=== PATIENT | female | born 1955 | race Hispanic/Latino ===

== ENCOUNTER → 2018-01-21 | Outpatient (CLI) | payer OTHER ==
[~2018-01-21] MED LIST: LIPITOR20 MG PO
--- NOTE | 2018-01-21 14:34 | Diagnostic Imaging Report ---
EXAM: SP LUMBAR, COMPLETE MIN 4VW DATE: 01/21/2018 12:57 PM INDICATION: ^[id number] ^1320 ^Spondylolysis, lumbosacral region pain/fall COMPARISON: None FINDINGS: Vertebral heights and disc spaces are maintained. Moderate lower lumbar facet degenerative changes are present with trace degenerative anterolisthesis L4 and L5. No distinct pars defect identified. IMPRESSION: Degenerative changes as above. Signed by: Dr. Iglesia Varghese MD on 01/21/2018 2:30 PM
--- NOTE | 2018-01-21 14:35 | Diagnostic Imaging Report ---
EXAM: SACRUM X-RAY DATE: 01/21/2018 12:57 PM INDICATION: ^[id number] ^1320 ^Spondylolysis, lumbosacral region pain/fall COMPARISON: None FINDINGS: Lower lumbar degenerative changes. Mild degenerative changes SI joints. No sacral fracture, coccygeal fracture, or osseous lesion identified. IMPRESSION: No acute findings. Signed by: Dr. Iglesia Varghese MD on 01/21/2018 2:31 PM
== END ==
LOC: RAD 12:44
PROVIDERS: ATTEND Internal Medicine
DX: M43.07 Spondylolysis, lumbosacral region (principal)
CPT/HCPCS: 72110; 72220

== ENCOUNTER 2018-07-27 12:24 | Emergency (ER) | payer OTHER ==
[~2018-07-27] VITALS: Ht 162.6 cm; Wt 83.5 kg
--- OUTSIDE RECORDS SUMMARY | 2018-07-27 12:26 | XMS REPORT ---
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 Allergies, Adverse Reactions, Alerts This patient has no known allergies or adverse reactions. Medications This patient has no known medications. Results Test Description Test Time Test Comments Text Results Atomic Results Result Comments SACRUM X-RAY 2018-01-21 14:31:00 [place] [address] Patient Name: SHRUTHI FERREIRA MR #: [id number] : 1955 Age/Sex: 62/F Req #: [id number] [facility] Physician: Ordered by: BRYANT HOFFMAN MD Report #: [id number] Location: [facility] Room/Bed: Procedure: [id number] DX/SACRUM X-RAY Exam Date: 01/21/18 Exam Time: 1320 REPORT STATUS: Signed EXAM: SACRUM X-RAY DATE: 01/21/2018 12:57 PM INDICA TION: [id number] 1320 Spondylolysis, lumbosacral region pain/fall COMPARISON: None FINDINGS: Lower lumbar degenerative changes. Mild degenerative changes SI joints. No sacral fracture, coccygeal fracture, or osseous lesion identified. IMPRESSION: No acute findings. Signed by: Dr. Iglesia Dennis MD on 01/21/2018 2:31 PM Dictated By: IGLESIA DENNIS MD 30 Transcribed By: PETRA on 01/21/181430 COPY TO: BRYANT HOFFMAN MD SP LUMBAR, COMPLETE MIN 4VW 2018-01-21 14:29:00 [place] [address] Patient Name: SHRUTHI FERREIRA MR #: [id number] : 1955 Age/Sex: 62/F Req #: [id number] Adm Physician: Ordered by: BRYANT HOFFMAN MD Report #: [id number] Location: [facility] Room/Bed: Procedure: [id number] DX/SP LUMBAR, COMPLETE MIN 4VW Exam Date: 01/21/18 Exam Time: 1320 REPORT STATUS: Signed EXAM: SP LUMBAR, COMPLETE MIN 4VW DATE: 12:57 PM INDICATION: [id number] 1320 Spondylolysis, lumbosacral region pain/fall COMPARISON: None FINDINGS: Vertebral heights and disc spaces are maintained. Moderate lower lumbar facet degenerative changes are present with trace degenerative anterolisthesis L4 and L5. No distinct pars defect identified. IMPRESSION: Degenerative changes as above. Signed by: Dr. Iglesia Dennis MD on 01/21/2018 2:30 PM Dictated By: IGLESIA DENNIS MD 29 Transcribed By: PETRA on 01/21/181429 COPY TO: BRYANT HOFFMAN MD
[2018-07-27] MEDS ORDERED: HYDROCODONE/APAP 7.5MG-325MG 1 EA TAB PO PRN (13:30)
[2018-07-27] MEDS ORDERED: KETOROLAC TROMETHAMINE 60 MG/2 ML VIAL IM NR (13:30)
[2018-07-27] MEDS ORDERED: DEXAMETHASONE SOD PHOS 10 MG/1 ML VIAL IM NR (13:30)
== END 2018-07-27 15:20 | disposition home or self-care (01) ==
LOC: ER 12:24
DX: M54.42 Lumbago with sciatica, left side (principal)
CPT/HCPCS: 99284; J1100; J1885

== ENCOUNTER → 2019-06-18 | Outpatient (CLI) | payer OTHER ==
--- NOTE | 2019-06-18 14:39 | Diagnostic Imaging Report ---
LUMBAR SPINE 4 VIEWS HISTORY: Low back pain lumbar spondylosis, fall COMPARISON: Lumbar spine radiographs of 01/21/2018 FINDINGS: AP, lateral, and bilateral oblique views of the lumbar spine were obtained. No lumbar spine fracture is visualized. There is mild/moderate disc space narrowing and mild endplate osteophyte formation at L2-L3. Mild disc space narrowing and endplate osteophyte formation at L3-L4. Moderate facet joint arthrosis at L3-L4. Moderate disc space narrowing at L4-L5. Moderate to severe facet joint osteoarthritis at L4-L5. Mild degenerative L4 spondylolisthesis. Mild disc space narrowing at L5-S1. Moderate to severe facet joint osteoarthritis at L5-S1. No spondylolysis is visualized. Mild right and moderate left sacroiliac joint arthrosis. Mild aortic calcifications. IMPRESSION: 1. No evidence of a lumbar spine fracture. 2. Multilevel degenerative disease, most advanced at L4-L5. Signed by: Greg Segovia MD on 06/18/2019 2:36 PM
--- NOTE | 2019-06-18 14:43 | Diagnostic Imaging Report ---
SACRUM/COCCYX 2 VIEWS History: Back pain, spondylosis, fall Comparison: Sacrum/coccyx radiographs of 01/21/2018 Findings: AP and lateral views of the sacrum and coccyx were obtained. No evidence of a fracture in the sacrum or coccyx. No destructive bone lesion is visualized. There are partially imaged degenerative changes in the lumbar spine, evaluated in greater detail on dedicated lumbar spine radiographs of the same date. Mild right and moderate left arthrosis of the sacroiliac joints, similar in appearance. IMPRESSION: 1. No evidence of a fracture in the sacrum or coccyx. Signed by: Greg Segovia MD on 06/18/2019 2:40 PM
== END ==
LOC: RAD 13:18
PROVIDERS: ATTEND Internal Medicine
DX: M43.07 Spondylolysis, lumbosacral region (principal); W19.XXXA Unspecified fall, initial encounter
CPT/HCPCS: 72110; 72220